=== PATIENT | female | born 2000 | race Two or more races ===

== ENCOUNTER 2025-01-28 18:33 | Emergency (ER) | payer MEDICAID, OTHER ==
[~2025-01-28] VITALS: Ht 154.9 cm; Wt 75.8 kg
[2025-01-28 18:45] VITALS: BP 116/68; PULSE 89; RESP 14; O2SAT 98
== END 2025-01-28 20:38 | disposition left against medical advice (07) ==
LOC: ER 18:41
DX: R11.2 Nausea with vomiting, unspecified (principal); R19.7 Diarrhea, unspecified; R50.9 Fever, unspecified; Z53.21 Procedure and treatment not carried out due to patient leaving prior to being seen by health care provider